=== PATIENT | male | born 1960 | race Caucasian/White ===

== ENCOUNTER 2016-07-31 19:56 | Emergency (ER) | payer BC, OTHER ==
[2016-07-31 20:03] VITALS: BP 122/84
--- OUTSIDE RECORDS SUMMARY | 2016-07-31 20:37 | XMS REPORT | Continuity of Care Document ---
:1960 Author Organization [facility] ([facility]) Address [address] [address] Phone [phone] Care Team Providers Name Role Phone Unavailable Primary Care Provider Unavailable Source Comments This disclosure is being made pursuant to the Care Everywhere program, applicable federal and state laws, and may not contain all informaitonavailable regarding this patient.[facility] ([facility]) Active Allergies and Adverse Reactions Allergen Noted Date Severity Reactions Comments Penicillins Urticaria (Hives) as a child Current Medications Not on file Active Problems Not on file Immunizations Name Dates Previously Given Next Due Influenza, unspecified 03/07/1996,05/07/1995 Td, adult unspecified 05/07/1991 Social History Tobacco Use Types Packs/Day Years Used Date Never Assessed Last Filed Vital Signs Vital Sign Reading Time Taken Blood Pressure - - Pulse - - Temperature - - Respiratory Rate - - Height 1.854 m (6' 0.99") 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
--- NOTE | 2016-07-31 20:41 | ERNOTE ---
Time Seen by Provider: 07/31/16 20:29 Stated Complaint: COUGH, RUNNY NOSE, BODY ACHES Presenting Symptoms:: cough, runny nose Source: patient Exam Limitations: no limitations Immunizations: IMMUNIZATION HX Immunizations Up to Date Yes History of Influenza Vaccine Yes Hx Pneumococcal Vaccination No Allergies/Adverse Reactions: Allergies Penicillins Allergy (Unknown, Verified 01/28/16 00:47) Home Medications: HOME MEDICATIONS Lisinopril [Prinivil] 5 mg PO BID 05/26/12 [Last Taken Unknown] Aspirin [Aspirin Chewable] 81 mg PO DAILY 10/16/12 [Last Taken Unknown] Hydrochlorothiazide [Hydrodiuril] 25 mg PO DAILY 10/16/12 [Last Taken Unknown] Simvastatin [Zocor] 20 mg PO DAILY 10/16/12 [Last Taken Unknown] Tiotropium Ellis [Spiriva] 18 mcg IH DAILY 10/16/12 [Last Taken Unknown] - History of Present Ilness Narrative: Pt began to have malaise 3 days ago followed by nasal congestion and cough 2 days ago. some shortness of breath after a coughing spell Timing: getting worse Severity: moderate Frequency/Possible Cause: Reports: occasional episodes Associated Symptoms: Reports: shortness of breath - after coughing, nasal congestion, nasal drainage, muscle aches. Denies: earache, headache Review of Systems - Review of Systems Constitutional: Present: See HPI. Absent: fever EYE: Present: no symptoms reported ENT: Present: See HPI Respiratory: Present: See HPI Cardiology: Present: no symptoms reported Gastrointestinal/Abdominal: Absent: nausea, vomiting Genitourinary: Present: no symptoms reported Musculoskeletal: Present: See HPI, muscle pain Skin: Present: no symptoms reported Neurological: Present: no symptoms reported Endocrine: Present: no symptoms reported Hematologic/Lymphatic: Present: no symptoms reported Psych: Present: no symptoms reported - Patient's Past Medical History Patient History - Medical: No pertinent hx Patient History - Cardiac/Respiratory: Bronchitis, COPD, Hypertension, Hyperlipidemia Patient History - Cancer: No Hx of Cancer Patient History - Surgical Procedures: Other, Hernia Repair Patient History - Other: None - Family History Father Family History - Medical: Mother Family History - Medical: Diabetes Type 2 - Social History Living Situations: home Psych History: No pertinent hx Smoking Status: Current every day smoker Patient requests Smoking Cessation Consult: No Initiate information on Smoking Cessation: No Alcohol Use: occasionally Drug Use: none - Immunizations Immunizations Up to Date: Yes Hx Pneumococcal Vaccination: No History of Influenza Vaccine: Yes Physical Exam - Physical Exam General Appearance: Present: wd/wn, alert, no apparent distress Eye Exam: Normal inspection: bilateral Ears, Nose, Throat: Present: nasal congestion. Absent: pharyngeal erythema Neck: Present: normal inspection, nontender Respiratory: Present: no respiratory distress, normal breath sounds, no accessory muscle use, lungs clear Cardiovascular/Chest: Present: regular rate, rhythm, no murmur, normal peripheral pulses Neurological Exam: Present: alert, oriented, normal mood/affect, no motor/ sensory deficits Skin Exam: Present: normal color, warm/dry Lymphatic Exam: Present: no adenopathy ED Progress - Results and Orders Patient's Lab Results:: I have reviewed the patient's lab results. Results and Orders: Laboratory Tests 07/31/16 20:48 Influenza Type A Ag Negative Influenza Type B Ag Negative - Vital Signs Patient's Vital Signs:: I have reviewed the patient's vital signs. Vital Signs: Vital Signs 07/31/16 20:00 Temperature 37.2 C Pulse Rate 91 Respiratory 18 Rate Blood Pressure 122/84 O2 Sat by Pulse 96 Oximetry - Progress/Reassessment Chief Complaint: Upper Respiratory Symptoms Departure - Departure Clinical Impression: Upper respiratory infection Qualifiers: URI type: acute nasopharyngitis (common cold) Qualified Code(s): J00 - Acute nasopharyngitis [common cold] Disposition: Home self-care Condition: Good Instructions: Upper Respiratory Infection, Adult, [id number] Additional Instructions: May use [id number] as needed for congestion and cough. follow up if not better in 5-7 days Referrals: Raghav Monzon DO [Primary Care Provider] -
== END 2016-07-31 22:19 | disposition home or self-care (01) ==
LOC: ER 19:56
DX: J00 Acute nasopharyngitis [common cold] (principal); F17.210 Nicotine dependence, cigarettes, uncomplicated

== ENCOUNTER 2016-12-28 23:09 | Emergency (ER) | payer BC, OTHER ==
[2016-12-28 23:20] VITALS: BP 132/79
== END 2016-12-28 23:21 | disposition home or self-care (01) ==
LOC: ER 23:09
DX: Z13.6 Encounter for screening for cardiovascular disorders (principal)